=== PATIENT | male | born 1985 | race Caucasian/White ===

== ENCOUNTER 2021-11-13 14:26 | Outpatient (RCR) | payer OTHER, SELFPAY ==
--- OUTSIDE RECORDS SUMMARY | 2021-11-01 14:46 | XMS_ITS | Continuity of Care Document ---
:1985 Author Care Team Providers Name Role Phone MD Kaley Melo Primary Care Physician MD Lidya Attending Physician Unavailable PRAVIN Shaver Primary Care Physician Chief Complaint and Reason for Visit Chief Complaint SAME DAY SURGERY Allergies, Adverse Reactions, Alerts Allergen Type Severity Reaction Last Updated Verified Status No Known Drug Allergy Unknown May Yes Active Allergy 2021 Social History Smoking Status Status Start Date End Date Date of Observat ion Never smoked tobacco July 31, 2021 6:07pm (finding) Observation Status Observation Response Date of Response History provided by Patient March 24, 2017 6 :03pm Where do you live? Own home/apt March 24, 2017 6 :03pm With whom do you live? Spouse March 24 6:03pm Minor children March 24, 2017 6 :03pm Additional Data Assigned Sex Male Problems Active Problems Medical Problem Onset Date Status History of ITP Active Incisional hernia Active Morbid obesity Active Depression Active GERD (gastroesophageal reflux Active disease) Seasonal allergies Active Hx of deep venous thrombosis Active Hx pulmonary embolism Active s/p incisional hernia repair Active Hearing loss in right ear Active Otitis Active Hx of splenectomy Active Medications Medication Status Dose Units Route Directions Qty Days Start End Ins tructions Date Date Acetaminophe Active 500-1 MG PO Every 6 100 NO M ORE THAN n (Tylenol 000 Hours as 4000 M G/DAY Extra needed Strength) 500 Mg TAB Amoxicillin Active 875 MG PO Twice Daily 05 August For 10 Days 2021 5:15pm Dexamethason Active 40 MG PO Daily September 40mg d aily x e , 4 days. 2021 6:58pm Fexofenadine Active 1 TAB PO Daily 15 November -Pseudoephed 2017 (Mignon-D 3:18pm 24 Hour Allergy) 24 Hour TAB Ibuprofen Active 800 MG PO Tid Prn Indomethacin Active 50 MG PO Three Times 17 June A Day as , 2021 9:56am Omeprazole Active 40 MG PO Daily August 15, 2021 10:40am Prednisone Active 10 MG PO Daily 14 October 03, 2021 9:49am Prednisone Active 20-60 MG PO Daily Ud September 60 MG PO DAILY FOR 7 DAYS, THEN , 50 MG PO DAILY for 7 days, then 2021 40 MG PO DAILY FOR 7 DAYS, THEN 9:49am 30 mg po myles y for 7 days, then 20 MG PO DAILY FOR 7 DAYS, THEN 10 MG PO Daily for 7 days, Then 5 mg po daily for 7 days. Prednisone Active 50 MG PO Daily 7 October 03, 2021 9:49am Sildenafil Active 50-10 MG PO As Needed 22 July TAKE 1 TAB 1 Citrate 0 , HR PRIOR TO (Viagra) 2020 INTERCO URSE Mg TAB 12:31pm Albuterol Disconti 2 PUFF INH Every 4 May Sulfate nued Hours as , , (Proair Hfa) needed 2019 2020 90 Mcg/Puff 3:45pm 8:58am INH Amoxicillin Disconti 1000 MG PO Twice A Day May uar nued r , y 2018 10:45am 3:07pm Amoxicillin Disconti 1 TABLET PO Twice Daily July & Pot nued For 10 Days , , Clavulanate 2017 2017 (Augmentin) 3:12pm 3:02pm 875 Mg/125 Mg TAB Amoxicillin/ Disconti 1 TAB PO Twice Daily Ja nuar Clavulanate nued For 10 Days er y Potassium , , (Amoxicillin 2020 2021 & Pot 3:58pm 9:06am Clavulanate) 875 Mg/125 Mg TAB Cephalexin Disconti 1000 MG PO Three Times May Marito h 2 capsules nued A Day , , TID 2021 2021 9:56am 4:41pm Cephalexin Disconti 500 MG PO Four Times 28 Mayua r nued Daily r y 2016, 2:51pm 2017 11:05a m Cephalexin Disconti 500 MG PO Four Times 40 Novembe Novem b nued Daily r 9th, er 2016 15, 10:52am 2017 2:51pm Cetirizine Disconti 10 MG PO Daily December Hcl nued 2017 8:01am Clobetasol Disconti 1 FRANSISCA TOP Twice A Day 31 December Janua r APPLY SPARINGLY TO AFFECTED AREA for no more than 2 wks at Propionate nued 28th, y 9th, a time. (Clobetasol 2017 2019 Propionate 8:21am 3:07pm Ointment) 0.05 % OINT Docusate Disconti 100 MG PO Twice A Day 14 Novembe Januar take twice Sodium nued r 9, y daily for (Colace) 100 2016, constip ation Mg CAP 10:52am 2017 11:05a m Enoxaparin Disconti 30 MG SUBQ Twice A Day 30 Novembe Satish ar Sodium nued r 27, y (Lovenox) 2016, Mg/0.3 Ml 3:06pm 2017 SOLN 11:05a m Enoxaparin Disconti 30 MG SUBQ Twice A Day 60 Novembe Nove mb Sodium nued r 9, er (Lovenox) 30 2016, Mg/0.3 Ml 10:52am 2016 SOLN 3:06pm Heparin Disconti 5000 UNIT SUBQ Three Times 42 Novembe Januar (Porcine) In nued A Day r 27, y Sodium Ch 2016, (Heparin 3:39pm 2017 Sodium/Nacl 11:05a 0.9%) 1,000 m Unit INJ Influenza Disconti 0.5 ML IM Once 1 Decembe Decemb Virus Vac nued r 24, er Recomb Hem 2018, (Flublok 10:25am 2018 Quadrivalent 11:39a 2018 0.5 Ml) m 1 Inj INJ Influenza Disconti 0.5 ML IM Once 1 Septem Virus nued er francisco Vaccine , , Split 2016 2016 (Fluzone 11:26am 11:36a Quadrivalent m (3 Yrs And Older)2016- 7) 1 Inj INJ Levofloxacin Disconti 750 MG PO Daily 7 Mayua nued 16, ry 2019 14, 4:11pm 2019 9:21am Levofloxacin Disconti 750 MG PO Daily 7 Mayuar nued 2019 16, 3:45pm 2019 3:36pm Omeprazole Disconti 40 MG PO Daily August 8:11am 10:40a m Omeprazole Disconti 40 MG PO Daily October 4:13pm 8:11am Omeprazole Disconti 40 MG PO Daily July 2:40pm 4:13pm Omeprazole Disconti 40 MG PO Daily July 3:47pm 2:40pm Omeprazole Disconti 40 MG PO Daily 30 July 1:45pm 3:47pm Omeprazole Disconti 40 MG PO Daily 90 ua nued r , 2017, 12:51pm 2019 1:45pm Omeprazole Disconti 40 MG PO Daily 90 Decemb nued er er , 2016 12:12pm 12:51p m Omeprazole Disconti 40 MG PO Daily 30 Sept nued francisco 2016 12:12p m Oxycodone Disconti 5-10 MG PO Every 4 60 Novembe Januar Hcl nued Hours as r 15th, y needed 2016, 2:44pm 2017 11:05a m Oxycodone Disconti 5-10 MG PO Every 4 30 Novembe Januar Hcl nued Hours as r 27th, y needed 2016, 3:21pm 2017 11:05a m Oxycodone Disconti 5-10 MG PO Every 4 30 Novembe Novemb Hcl nued Hours as r , er needed 2016, 10:08am 2016 3:21pm Prednisone Disconti 20 MG PO Twice A Day 10 ar nued er y , 2020 3:58pm 9:06am Prednisone Disconti 20 MG PO Twice A Day October 20 mg bid for 7 days, then daily for 6 days. Take with nued , . 2019 2019 4:13pm 3:03pm Prednisone Disconti 20 MG PO Daily 7 Decembe Januar nued r 24th, y 9th, 2018 2019 10:45am 3:07pm Sennosides Disconti 1 TAB PO Daily 100 (Senna) 8.6 nued r 9th, y Mg TAB 2016, 10:52am 2017 11:05a m Sildenafil Disconti 50-10 MG PO As Needed July TAKE 1 TAB 1 Citrate nued 0 er 11th, HR PRIOR TO (Viagra) 2020 INTERCO URSE Mg TAB 2019 12:31p 8:51am m Sildenafil Disconti 50-10 MG PO As Needed August T HIRAM 1 TAB 1 Citrate nued 0 13th, francisco HR PRIOR TO (Viagra) 2019, INTERCO URSE Mg TAB 11:47am 2019 8:51am Sildenafil Disconti 50-10 MG PO As Needed August TAKE 1 TAB 1 Citrate nued 0 y 14, 13th, HR PRIOR T O (Viagra) 2019 INTERCO URSE Mg TAB 9:50am 11:47a m Triamcinolon Disconti 2-3 DROP AFFEAR Twice A Day July e e Acetonide nued , , (Lotion) 2017 2017 9:16am 3:02pm Triamcinolon Disconti 1 FRANSISCA TOP Twice A Day 17 March No vemb APPLY TO e Acetonide nued , er AFFECTED AREA (Ointment) 2016 07, for up to 2 1:26pm 2016 wks. 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 Reason Number Number Informatio n Statement (VIS) Deta il COVID-19 Pfizer January 132020 COVID-19 Pfizer March 202020 DTaP September 231985 DTaP November 251985 DTaP February 181985 DTaP June 221987 DTaP December 041990 Hepatitis B Adult June 192005 Hepatitis B Peds December 061997 Hepatitis B Peds December 191998 Hepatitis B Peds August 20, 2004 HIB September 251987 HIB February 172013 Human August 26, Other Papillomavirus 2013 Reason Influenza January 19 Sanofi [id number] 2016 Influenza April 21 SANOFI [id number] 2018 Influenza February 16 [id number] 2013 Influenza February 17 [id number] 2014 Influenza February 20 [id number] 2020 IPV Peds September 231985 IPV Peds November 251985 IPV Peds June 211987 IPV Peds December 041990 Meningococcal February 16 (11Y-15Y) 2013 MMR Peds April 181986 MMR Peds December 061997 Prevnar Adult February 162013 Tetanus/Diptheria October 052010 Tetanus/Diptheria December 071995 Tdap June 19 (adolescent/adult 2005 ) Tdap January 18 (adolescent/adult 2018 ) Relevant Diagnostic Tests and/or Laboratory Data Laboratory Results Test Date/Time Result Interpretation Reference Result Perfo rming Site Range Comment White Blood October 09, 22.97 5.00-10.00 [facility] Lab Count [address] [facility] 8:15am [facility] [address] Red Blood October 09, 5.31 4.32-5.72 [facility] Lab Count [address] [facility] 8:15am [place] [address] Hemoglobin October 09, 14.8 13.5-17.5 [facility] Lab [address] [facility] 8:15am [place] [address] Hematocrit October 09, 45.6 38.8-50.0 [facility] Lab [address] [facility] 8:15am [place] [address] Mean October 09, 86 81-95 [facility] Lab Corpuscular 2021 1999 [facility] Volume 8:15am [place] [address] Mean October 09, 28 27-34 [facility] Lab Corpuscular 2021 [address] [facility] Hemoglobin 8:15am [place] [address] Mean October 09, 33 32-36 [facility] Lab Corpuscular 2021 [address] [facility] Hemoglobin 8:15am [place] [address] Concent Platelet October 30, 344 150-450 [facility] Lab Count [address] [facility] 8:08am [place] [address] White Blood October 02, 21.9 4.5-11.0 Manual Diff [facility] Count 2021 PMN 43, [address] [facility] 10:09am Lymph 42, [place] [address] [place] 15 Red Blood October 02, 5.69 4.30-5.90 [place] [facility] Count [address] [facility] 10:09am [place] [address] Hemoglobin October 02, 15.7 13.5-17.5 [facility] [address] [facility] 10:09am [place] [address] Hematocrit October 02, 47.9 37-53 [facility] [address] [facility] 10:09am [place] [address] Mean October 02, 84 80-100 [facility] Corpuscular 2021 [address] [facility] Volume 10:09am [place] [address] Mean October 02, 28 26-34 [facility] Corpuscular 2021 [address] [facility] Hemoglobin 10:09am [place] [address] Mean October 02, 33 32-36 [facility] Corpuscular 2021 [address] [facility] Hemoglobin 10:09am [place] [address] Concent Platelet October 02, 573 140-440 estimate [facility] Count 2021 agrees, [facility] 10:09am [place] [address] giant platelets seen Neutrophils October 02, 43.1 42-72 [facility] (%) (Auto) 2021 1999 [facility] 10:09am [place] [address] Lymphocytes October 02, 42.6 20-44 [facility] (%) (Auto) 2021 [address] [facility] 10:09am [place] [address] Monocytes October 02, 12.4 0-11 [facility] (%) (Auto) 2021 [address] [facility] 10:09am [place] [address] Eosinophils October 02, 1.4 0-7 [facility] (%) (Auto) 2021 [address] [facility] 10:09am [place] [address] Basophils October 02, 0.0 0.0-3.0 [facility] (%) (Auto) 2021 [address] [facility] 10:09am [place] [address] Neutrophils October 02, 9.4 1.7-7.0 [facility] ([facility] [address] [facility] 10:09am [place] [address] Lymphocytes October 02, 9.3 0.9-2.9 [facility] # (Auto) [address] [facility] 10:09am [place] [address] Monocytes # October 02, 2.7 0.0-0.9 [facility] (Auto[facility] [address] [facility] 10:09am [place] [address] Eosinophils October 02, 0.3 0.0-0.5 [facility] # (Auto) [address] [facility] 10:09am [facility] [address] Basophils # October 02, 0.0 0.0-0.3 [facility] (Auto) [address] [facility] 10:09am [facility] [address] Immature October 02, 0.1 [facility] Granulocyte 2021 [address] [facility] # (Auto) 10:09am [facility] [address] Immature October 02, 0.5 [facility] Granulocyte 2021 [address] [facility] % (Auto) 10:09am [facility] [address] Advance Directives Advance Directive Response Recorded Date/Time Has patient completed a No June 05 10:53am Health Care Directive? Insurance Providers Guarantor Francisco Javier Mccall Address [address] [place] [id number] Contact Info. Home Phone: Payer Policy Id Coverage Id Subscriber's Subscriber Id Effective E xpiration Name Date Date Umr [id number] Francisco Javier Mccall 2018 Choice Select Encounters Encounter Location(s) Arrival/Admit Date Discharge/Depart Date Provider(s) Registered [place] October 30, 2021 Nithya Bose [facility] 6:55am Registered [place] October 02, 2021 Ray Melo am [facility] 10:08am Kaley ARROYO Registered [facility] October 02, 2021 [facility] Office Visit [place] October 02, 2021 Ray Melo [facility] 10:00am Kaley ARROYO Functional Status Observation Response Date Recorded Functional Status Independent March 28, 2017 2:36pm Mental Status Observation Response Date Recorded Cognitive Status Alert March 28, 2017 2:36pm Oriented March 28, 2017 2:36pm Plan of Treatment Future Tests Future scheduled test information is unavailable Pending Tests Pending diagnostic test information is unavailable Future Visits Future appointment information is unavailable Referrals to Other Providers Reason for Referral Start Provider Provider Contact Provider Address Referral Date Information [facility], [facility] Future Procedures Future procedure information is unavailable Future Medications Future medication information is unavailable Patient Instructions Cephalexin (By mouth) Laxative, Stimulant (By mouth) Laxative, Stool Softeners (By mouth) Enoxaparin (By injection) Ventral Hernia Repair (DC)
--- OUTSIDE RECORDS SUMMARY | 2021-11-09 14:35 | XMS_ITS | Continuity of Care Document ---
:1985 Author Care Team Providers Name Role Phone MD Kaley Melo Primary Care Physician MD Lidya Attending Physician Unavailable PRAVIN Shaver Primary Care Physician Allergies, Adverse Reactions, Alerts Allergen Type Severity [...] Daily September 40mg d aily x e days. 2021 6:58pm Fexofenadine Active 1 TAB PO Daily 15 November -Pseudoephed 2017 (Mignon-D 3:18pm 24 Hour Allergy) 24 Hour TAB Ibuprofen Active 800 MG PO Tid Prn Indomethacin Active 50 MG PO Three Times 17 June A Day as , needed 2021 9:56am Omeprazole Active 40 MG PO [...] July TAKE 1 TAB 1 Citrate 0 11, HR PRIOR TO (Viagra) 2020 INTERCO URSE Mg TAB 12:31pm Albuterol Disconti 2 PUFF INH Every 4 May Sulfate nued Hours as , (Proair Hfa) needed 2019 2020 90 Mcg/Puff 3:45pm 8:58am INH Amoxicillin Disconti 1000 MG PO Twice A Day 40 Decemb Joselito uar nued r , y 2018 10:45am [...] Disconti 500 MG PO Four Times 28 Novembe Janua r nued Daily r , y 2016, 2:51pm 2017 11:05a m Cephalexin Disconti 500 MG PO Four Times 40 Novembe Novem b nued Daily r 9, er 2016, 10:52am 2016 2:51pm Cetirizine Disconti 10 MG PO Daily December Hcl nued 2017 8:01am Clobetasol Disconti 1 FRANSISCA TOP Twice A Day 31 December Janua r APPLY SPARINGLY TO AFFECTED AREA for no more than 2 wks at Propionate nued 28, y 9th, a time. (Clobetasol 2017 2019 [...] MG SUBQ Twice A Day 60 Novembe Wes mb Sodium nued r 9, er (Lovenox) 2016, Mg/0.3 Ml 10:52am 2016 SOLN 3:06pm Heparin Disconti 5000 UNIT SUBQ Three Times 42 Novembe Mayuar (Porcine) In nued A Day r 27, y Sodium Ch 2016, (Heparin 3:39pm 2017 Sodium/Nacl 11:05a 0.9%) 1,000 m Unit INJ Influenza Disconti 0.5 ML IM Once 1 Decembe Decemb Virus Vac nued r , er Recomb Hem 2018, (Flublok 10:25am 2018 Quadrivalent 11:39a 2018 0.5 Ml) m 1 Inj INJ Influenza Disconti 0.5 ML IM Once 1 Septem Virus nued er francisco Vaccine , 13, Split 2016 2016 (Fluzone 11:26am 11:36a Quadrivalent m (3 Yrs And Older)2015- 7) 1 Inj INJ Levofloxacin Disconti 750 MG PO Daily May Februa nued 16, ry 2019 14, 4:11pm 2019 9:21am Levofloxacin Disconti 750 MG PO Daily 7 7 Halima Januar nued 9, 2019, 3:45pm 2019 3:36pm Omeprazole Disconti 40 MG PO Daily Augusted , 2020 8:11am 10:40a m Omeprazole Disconti 40 MG PO Daily October, 2019 4:13pm 8:11am Omeprazole Disconti 40 MG PO Daily July 2:40pm 4:13pm Omeprazole Disconti 40 MG PO Daily July 3:47pm 2:40pm Omeprazole Disconti 40 MG PO Daily 30 July y 2019 1:45pm 3:47pm Omeprazole Disconti 40 MG PO Daily 90 Decembua nued r , 2017 12th, 12:51pm 2019 1:45pm Omeprazole Disconti 40 MG PO Daily 90 Decemb nued er er 2016 12:12pm 12:51p m Omeprazole Disconti 40 MG PO Daily 30 Septem nued francisco 2016 12:12p m Oxycodone Disconti [...] Novembe Novemb Hcl nued Hours as r 21st, er needed 2016, 10:08am 2016 3:21pm Prednisone Disconti 20 MG PO Twice A Day 10 ar nued er y , 2020 3:58pm 9:06am Prednisone Disconti 20 MG PO Twice A Day October 20 mg bid for 7 days, then daily for 6 days. Take with nued , , . 2019 2019 4:13pm 3:03pm Prednisone Disconti 20 MG PO Daily 7 Decemb Januar nued r 24th, y [address] 10:45am 3:07pm Sennosides Disconti 1 TAB PO Daily 100 14 Novem Januar (Senna) 8.6 nued r 9th, y Mg TAB 2016, 10:52am 2017 11:05a m Sildenafil Disconti 50-10 MG PO As Needed 6 July TAKE 1 TAB 1 Citrate nued 0 er 11th, HR PRIOR TO (Viagra) 2020 INTERCO URSE Mg TAB 2019 12:31p 8:51am m Sildenafil Disconti 50-10 MG PO As Needed 6 Augustem T HIRAM 1 TAB 1 Citrate nued 0 13th, francisco HR PRIOR TO (Viagra) 2019, INTERCO URSE Mg TAB 11:47am 2019 8:51am Sildenafil Disconti 50-10 MG PO As Needed August TAKE 1 TAB 1 Citrate nued 0 y 14th, 13th, HR PRIOR T O (Viagra) 2019 [...] Immunizations Immunization Event Date Not Given 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 cine Reason Number Number Informatio n Statement (VIS) Deta abigail COVID-19 Pfizer January 132020 COVID-19 Pfizer March 202020 DTaP September 231985 DTaP November 251985 DTaP February 181985 DTaP June 221987 DTaP December 04, 1990 Hepatitis B Adult June 192005 Hepatitis B Peds December 061997 Hepatitis B Peds December 19, 1998 Hepatitis B Peds August 20, 2004 HIB September 251987 HIB February 172013 Human August 26, Other Papillomavirus 2013 Reason Influenza January 19 Sanofi [id number] 2016 Influenza April 21 SANOFI [id number] 2018 Influenza February 16 [id number] 2013 Influenza February 17 [id number] 2014 Influenza February 20 [id number] 2020 IPV Peds September 231985 IPV Peds November 251985 IPV Peds June 211987 IPV Peds December 04, 1990 Meningococcal February 16 (11Y-15Y) 2013 MMR Peds April 181986 MMR Peds December 061997 Prevnar Adult February 162013 Tetanus/Diptheria October 052010 Tetanus/Diptheria December 071995 Tdap June 19 (adolescent/adult 2005 ) Tdap January 18 (adolescent/adult 2018 ) Relevant Diagnostic Tests and/or Laboratory Data Laboratory Results Test Date/Time Result Interpretation Reference Result Perfo rming Range Comment Site White Blood October 09, .97 5.00-10.00 [facility] Lab Count 2021 8:15am [address] [place] [address] Red Blood October 09, 5.31 4.32-5.72 [facility] Lab Count 2021 8:15am [address] [place] [address] Hemoglobin October 09, 14.8 13.5-17.5 [facility] Lab 2021 8:15am [address] [place] [address] Hematocrit October 09, 45.6 38.8-50.0 [facility] Lab 2021 8:15am [address] [place] [address] Mean October 09, 86 81-95 [facility] Lab Corpuscular 2021 8:15am [address] [facility] [place] [address] Mean October 09, 28 27-34 [facility] Lab Corpuscular 2021 8:15am [address] [facility] [place] [facility] [place] [address] Mean October 09, 33 32-36 [facility] Lab Corpuscular 2021 8:15am [address] [facility] [place] [facility] [place] [address] Concent Platelet Count October 30, 344 150-450 [facility] Lab 2021 8:08am [address] [facility] [address] Advance Directives Advance Directive Response Recorded Date/Time Has patient completed a No June 05 10:53am Health Care Directive? Insurance Providers Guarantor Francisco Javier Mccall Address [address] [facility] [address] Contact Info. Home Phone: Payer Policy Id Coverage Id Subscriber's Subscriber Id Effective E xpiration Name Date Date Umr [id number] Francisco Javier Mccall May 19 Patient 2019 Choice Select Encounters Encounter Location(s) Arrival/Admit Date Discharge/Depart Date Provider(s) Registered [place] November 06, 2021 Nithya Bose [facility] 7:03am Functional Status Observation Response Date Recorded Functional [...]
[2021-11-13 08:25] LABS: Slide Review Reflex No
[2021-11-13 08:37] LABS: Hematocrit 49.8 % (37.0-53.0); Mean Corpuscular HGB Conc 32 gm/dL (32-36); Mean Corpuscular Hemoglobin 28 pg (26-34); Mean Corpuscular Volume 88 fL (80-100); Platelet Count* 450 K/uL (140-440); Red Blood Count 5.67 m/uL (4.30-5.90); White Blood Count* 15.35 K/uL (4.50-11.00)
--- NOTE | 2021-11-13 10:26 | ONC.NURNOTE ---
Patient called and given lab results
== END 2021-11-15 23:59 | disposition home or self-care (01) ==
LOC: CCIC 14:26
PROVIDERS: PCP Family Medicine; Visit Provider Internal Medicine Hematology & Oncology
DX: D69.3 Immune thrombocytopenic purpura (principal)
CPT/HCPCS: 36415; 85027

== ENCOUNTER 2021-12-11 08:00 | Outpatient (RCR) | payer OTHER, SELFPAY ==
[2021-11-20 08:39] LABS: Basophils Percent Auto 0.4 % (0.0-3.0); Eosinophils Percent Auto 4.9 % (0.0-7.0); Hematocrit 47.7 % (37.0-53.0); Hemoglobin* 15.5 gm/dL (13.5-17.5); Immature Granulocytes Abs Auto 0.02 K/uL (0.00-0.30); Lymphocytes Percent Auto 18.8 % (20-44); Mean Corpuscular HGB Conc 33 gm/dL (32-36); Mean Corpuscular Hemoglobin 28 pg (26-34); Mean Corpuscular Volume 86 fL (80-100); Monocytes Percent Auto 8.5 % (0.0-11.0); Neutrophils Percent Auto 67.3 % (42.0-72.0); Platelet Count* 575 K/uL (140-440); RDW Coefficient of Variation % 15.1 % (11.5-15.5); Red Blood Count 5.52 m/uL (4.30-5.90); White Blood Count* 13.76 K/uL (4.50-11.00)
[2021-11-20 08:59] LABS: Albumin* 3.9 g/dL (3.3-5.0); Chloride* 107 mmol/L (96-114); Sodium* 138 mmol/L (135-149)
[2021-11-20 09:00] LABS: Potassium* 3.9 mmol/L (3.6-5.1)
[2021-11-20 09:02] LABS: Alanine Aminotransferase* 29 U/L (4-50); Alkaline Phosphatase* 95 U/L (40-150); Aspartate Amino Transferase* 27 U/L (12-35); Bilirubin Total* 0.3 mg/dL (0.1-1.5); Blood Urea Nitrogen* 13 mg/dL (5-24); Carbon Dioxide* 29 mmol/L (20-32); Estimated Glomerular Filt Rate 100.03; Glucose* 113 mg/dL (60-115); Total Protein* 6.3 g/dL (6.0-8.3)
[2021-11-20 09:03] LABS: Calcium* 8.8 mg/dL (8.4-10.6)
[2021-11-20 09:23] LABS: Slide Review Reflex No
[2021-12-04 08:26] LABS: Basophils Percent Auto 0.3 % (0.0-3.0); Eosinophils Percent Auto 6.4 % (0.0-7.0); Hematocrit 47.1 % (37.0-53.0); Hemoglobin* 15.6 gm/dL (13.5-17.5); Immature Granulocytes Abs Auto 0.03 K/uL (0.00-0.30); Lymphocytes Percent Auto 20.3 % (20-44); Mean Corpuscular HGB Conc 33 gm/dL (32-36); Mean Corpuscular Hemoglobin 28 pg (26-34); Mean Corpuscular Volume 85 fL (80-100); Neutrophils Percent Auto 65.7 % (42.0-72.0); Platelet Count* 671 K/uL (140-440); RDW Coefficient of Variation % 14.2 % (11.5-15.5); Red Blood Count 5.57 m/uL (4.30-5.90); White Blood Count* 11.81 K/uL (4.50-11.00)
[2021-12-04 08:39] LABS: Chloride* 107 mmol/L (96-114); Potassium* 4.3 mmol/L (3.6-5.1); Sodium* 139 mmol/L (135-149)
[2021-12-04 08:43] LABS: Carbon Dioxide* 26 mmol/L (20-32)
[2021-12-04 08:45] LABS: Slide Review Reflex No
[2021-12-11 08:31] LABS: Basophils Absolute Auto 0.04 K/uL (0.00-0.30); Basophils Percent Auto 0.4 % (0.0-3.0); Eosinophils Percent Auto 7.9 % (0.0-7.0); Hematocrit 46.9 % (37.0-53.0); Hemoglobin* 15.5 gm/dL (13.5-17.5); Immature Granulocytes Abs Auto 0.02 K/uL (0.00-0.30); Lymphocytes Absolute Auto 2.48 K/uL (0.90-2.90); Lymphocytes Percent Auto 23.1 % (20-44); Mean Corpuscular HGB Conc 33 gm/dL (32-36); Mean Corpuscular Hemoglobin 28 pg (26-34); Mean Corpuscular Volume 85 fL (80-100); Monocytes Percent Auto 7.6 % (0.0-11.0); Neutrophils Absolute Auto 6.51 K/uL (1.7-7.0); Neutrophils Percent Auto 60.8 % (42.0-72.0); Platelet Count* 647 K/uL (140-440); RDW Coefficient of Variation % 14.5 % (11.5-15.5); Red Blood Count 5.54 m/uL (4.30-5.90); White Blood Count* 10.72 K/uL (4.50-11.00)
[2021-12-11 08:42] LABS: Slide Review Reflex No
== END 2021-12-16 23:59 | disposition home or self-care (01) ==
LOC: CCIC 08:00
PROVIDERS: PCP Family Medicine; Visit Provider Internal Medicine Hematology & Oncology
DX: D69.3 Immune thrombocytopenic purpura (principal)
CPT/HCPCS: 36415; 80051; 80053; 85025; 99212; 99214

== ENCOUNTER 2022-01-10 07:11 | Outpatient (CLI) | payer OTHER, SELFPAY ==
[2022-01-10 10:09] LABS: Cholesterol* 200 mg/dL (90-199); HDL Cholesterol* 27 mg/dL (>=40); LDL Cholesterol Calculated 112 mg/dL (<100); Triglycerides* 305 mg/dL (40-149)
== END 2022-01-10 07:12 | disposition home or self-care (01) ==
LOC: NFLDREF 07:42
PROVIDERS: PCP Family Medicine; Visit Provider Family Medicine
DX: Z13.6 Encounter for screening for cardiovascular disorders (principal)
CPT/HCPCS: 80061

== ENCOUNTER 2022-01-17 08:23 | Outpatient (CLI) | payer OTHER, SELFPAY | END 2022-01-17 08:24 | disposition home or self-care (01) | PROVIDERS: PCP Family Medicine; Visit Provider Family Medicine | DX: R35.0 Frequency of micturition (principal) | CPT/HCPCS: 87086 ==

== ENCOUNTER 2022-03-13 13:11 | Outpatient (CLI) | payer OTHER, SELFPAY ==
[2022-03-13 19:09] LABS: SARS PCR* POSITIVE SARS-CoV-2 (Negative)
== END 2022-03-13 13:12 | disposition home or self-care (01) ==
LOC: LONREF 13:12
PROVIDERS: PCP Family Medicine; Visit Provider Family Medicine
DX: U07.1 COVID-19 (principal); R05.9 Cough, unspecified
CPT/HCPCS: 87635

== ENCOUNTER 2022-05-08 08:00 | Outpatient (RCR) | payer OTHER, SELFPAY ==
--- NOTE | 2022-01-01 15:12 | ONC.NURNOTE ---
no show for blood draw. message left.
--- NOTE | 2022-01-15 08:39 | W.ONCCN ---
Oncology-CN: HPI Date of Consult Primary Care Provider: Cabrera Melo MD Consult Narrative Narrative: Angus Mccall is a 36 year old male [facility] Medical History (Updated 12/03/21 @ 22:32 by Cassandra Lin APRN) Depression Gastroesophageal reflux disease Hearing loss of right ear History of deep venous thrombosis History of idiopathic thrombocytopenic purpura History of pulmonary embolism Immune thrombocytopenic purpura Incisional hernia Morbid obesity Otitis Seasonal allergic rhinitis Surgical History (Updated 12/03/21 @ 22:32 by Cassandra Lin APRN) History of hernia repair History of incisional hernia repair History of splenectomy Meds Home Medications and Allergies Home Medications Medication Instructions Recorded Confirmed Type acetaminophen 500 mg tablet 500 - 1,000 mg PO Q6H PRN 11/07/21 11/21/21 History (Tylenol Extra Strength) fexofenadine-pseudoephedrine ER 1 tab PO Q24H 11/07/21 11/21/21 History 180 mg-240 mg tablet,ext.release 24 hr (Mignon-D 24 Hour) omeprazole 40 mg capsule,delayed 40 mg PO QDAY 11/07/21 11/21/21 History release sildenafil 50 mg tablet (Viagra) 50 - 100 mg PO DAILY PRN 11/07/21 11/21/21 History Allergies Allergy/AdvReac Type Severity Reaction Status Date / Time No Known Drug Allergies Allergy Verified 11/12/21 09:30
--- NOTE | 2022-01-15 09:13 | ONC.NURNOTE ---
Message left for patient that he missed his appointment and should come in today or tomorrow for his monthly CBC. Last done 12/11
[2022-02-12 08:18] LABS: Basophils Percent Auto 0.4 % (0.0-3.0); Eosinophils Percent Auto 6.1 % (0.0-7.0); Hematocrit 47.5 % (37.0-53.0); Hemoglobin* 15.5 gm/dL (13.5-17.5); Immature Granulocytes Abs Auto 0.05 K/uL (0.00-0.30); Lymphocytes Percent Auto 22.7 % (20-44); Mean Corpuscular HGB Conc 33 gm/dL (32-36); Mean Corpuscular Hemoglobin 28 pg (26-34); Mean Corpuscular Volume 85 fL (80-100); Monocytes Percent Auto 10.4 % (0.0-11.0); Platelet Count* 666 K/uL (140-440); RDW Coefficient of Variation % 13.9 % (11.5-15.5); Red Blood Count 5.56 m/uL (4.30-5.90); White Blood Count* 12.47 K/uL (4.50-11.00)
[2022-02-12 08:23] LABS: Slide Review Reflex No
[2022-02-12 08:31] LABS: Albumin* 4.2 g/dL (3.3-5.0); Chloride* 103 mmol/L (96-114)
[2022-02-12 08:32] LABS: Sodium* 137 mmol/L (135-149)
[2022-02-12 08:34] LABS: Bilirubin Total* 0.5 mg/dL (0.1-1.5); Carbon Dioxide* 26 mmol/L (20-32); Estimated Glomerular Filt Rate 100 ml/min
[2022-02-12 08:35] LABS: Alanine Aminotransferase* 29 U/L (4-50); Alkaline Phosphatase* 86 U/L (40-150); Aspartate Amino Transferase* 25 U/L (12-35); Blood Urea Nitrogen* 13 mg/dL (5-24); Calcium* 9.2 mg/dL (8.4-10.6); Glucose* 109 mg/dL (60-115); Potassium* 4.1 mmol/L (3.6-5.1); Total Protein* 6.7 g/dL (6.0-8.3)
--- NOTE | 2022-04-10 15:43 | PC.NURSE ---
Pt was scheduled for labs today and did not come. LM on his primary line inviting him to call back to re-schedule.
== END 2022-08-11 23:59 | disposition home or self-care (01) ==
LOC: CCIC 08:00
PROVIDERS: PCP Family Medicine; Referring Provider Family Medicine; Visit Provider Internal Medicine Hematology & Oncology
DX: D69.3 Immune thrombocytopenic purpura (principal)
CPT/HCPCS: 36415; 80053; 85025; 99212; 99213; 99214

== ENCOUNTER 2023-09-17 09:20 | Outpatient (CLI) | payer OTHER, SELFPAY | END 2023-09-17 09:21 | disposition home or self-care (01) | LOC: NFLDREF 09-19 06:56 | PROVIDERS: PCP Family Medicine; Referring Provider Family Medicine; Visit Provider Family Medicine | DX: E78.5 Hyperlipidemia, unspecified (principal); Z13.228 Encounter for screening for other metabolic disorders | CPT/HCPCS: 80053; 80061 ==

== ENCOUNTER 2024-01-20 10:30 | Outpatient (RCR) | payer OTHER, SELFPAY ==
[2024-01-14 08:34] LABS: Basophils Percent Auto 0.4 % (0.0-3.0); Eosinophils Percent Auto 7.5 % (0.0-7.0); Hematocrit 48.5 % (37.0-53.0); Hemoglobin* 15.6 gm/dL (13.5-17.5); Immature Granulocytes Pct Auto 0.2 %; Lymphocytes Percent Auto 21.7 % (20-44); Mean Corpuscular HGB Conc 32 gm/dL (32-36); Mean Corpuscular Hemoglobin 28 pg (26-34); Mean Corpuscular Volume 86 fL (80-100); Monocytes Percent Auto 11.2 % (0.0-11.0); Platelet Count* 572 K/uL (140-440); RDW Coefficient of Variation % 14.5 % (11.5-15.5); Red Blood Count 5.66 m/uL (4.30-5.90); White Blood Count* 11.23 K/uL (4.50-11.00)
[2024-01-14 08:40] LABS: Slide Review Reflex No
[2024-01-14 08:50] LABS: Chloride* 106 mmol/L (96-114)
[2024-01-14 08:51] LABS: Albumin* 4.1 g/dL (3.3-5.0); Potassium* 4.3 mmol/L (3.6-5.1); Sodium* 138 mmol/L (135-149)
[2024-01-14 08:54] LABS: Alanine Aminotransferase* 27 U/L (4-50); Alkaline Phosphatase* 76 U/L (40-150); Anion Gap 4 mEq/L (7-15); Aspartate Amino Transferase* 31 U/L (12-35); Bilirubin Total* 0.2 mg/dL (0.1-1.5); Blood Urea Nitrogen* 12 mg/dL (5-24); Calcium* 9.1 mg/dL (8.4-10.6); Carbon Dioxide* 28 mmol/L (20-32); Creatinine* 0.9 mg/dL (0.5-1.5); Estimated Glomerular Filt Rate 112 ml/min; Glucose* 112 mg/dL (60-115); Total Protein* 6.6 g/dL (6.0-8.3)
== END 2024-07-12 23:59 | disposition home or self-care (01) ==
LOC: CCIC 10:30
PROVIDERS: Clinical Nurse Specialist; PCP Family Medicine; Referring Provider Family Medicine; Visit Provider Internal Medicine Hematology & Oncology
DX: D69.3 Immune thrombocytopenic purpura (principal); E66.01 Morbid (severe) obesity due to excess calories
CPT/HCPCS: 36415; 80053; 85025; 99213; G0463

== ENCOUNTER 2024-04-21 11:19 | Outpatient (CLI) | payer OTHER, SELFPAY | END 2024-04-21 11:20 | disposition home or self-care (01) | PROVIDERS: PCP Family Medicine; Visit Provider Family Medicine | DX: I10 Essential (primary) hypertension (principal); R53.83 Other fatigue; R51.9 Headache, unspecified | CPT/HCPCS: 80053; 84443 ==

== ENCOUNTER 2024-10-28 06:15 | Emergency (ER) | payer OTHER, SELFPAY ==
[2024-10-28 06:21] VITALS: BP 131/87; PULSE 95; RESP 18; TEMP 36.7; O2SAT 99; BMI 45.2
--- NOTE | 2024-10-28 06:39 | CRLHL7_ITS ---
For Patients: As a result of the Century Cures Act, medical imaging exams and procedure reports are released immediately into your electronic medical record. You may view this report before your referring provider. If you have questions, please contact your health care provider. INDICATION: Left flank pain. TECHNIQUE: CT abdomen and pelvis acquired with 150 cc Isovue 317 IV contrast. COMPARISON: CT abdomen and pelvis October 2020. FINDINGS: Lower chest: No concerning findings. Liver: Normal in size and attenuation. No suspicious masses. Gallbladder and bile ducts: No stones or inflammation. No biliary dilatation. Pancreas: No mass or inflammation. Spleen: Absent Adrenal glands: No suspicious mass. Kidneys: Bilateral kidneys are normal in size and attenuation. Nonobstructing left upper ureteric calculus of 4 millimeter. Few small hypodense renal lesions, too small to characterized. One of the lesion at the upper pole of right kidney measures 1.7 x 1.6 cm likely related to renal cyst. GI tract: No findings of bowel obstruction. Normal appendix. Vasculature: Abdominal aorta is normal in caliber. Lymph nodes: Redemonstration of multiple enlarged intra-abdominal lymph nodes. Periportal lymph nodes have slightly decreased in size measuring 1.5 cm in the short axis, previously 1.9 cm. Bilateral periaortic lymph nodes are similar to previous exam. Bilateral iliac group of lymph nodes are similar in size and configuration with the largest on the left side measures about 38 x 21 cm and on the right side it measures about 29 x 16 cm. There is increased size of bilateral inguinal lymph nodes, largest on the right side measures 35 x 23 mm, previously 26 x 19 mm and largest on the left side measures 27 x 19 mm, previously 22 x 14 mm. Peritoneum/Abdominal Wall: No free air or significant free fluid. Pelvis: Multiple enlarged pelvic lymph nodes as described. Bones: Scattered degenerative changes of the spine. No concerning bony lesion. IMPRESSION: 1. Increased size of bilateral inguinal lymph nodes with stable size and configuration of retroperitoneal and bilateral iliac group of lymph node. Mild reduction in the size of a periportal lymph node. 2. Nonobstructing left upper ureteric calculus of 4 millimeter. No hydronephrosis. Please note that all CT scans at this facility use dose modulation, iterative reconstruction, and/or weight-based dosing when appropriate to reduce radiation dose to as low as reasonably achievable. Dictated by Marnie Garcia MD @ 10/28/2024 8:35:19 AM (Electronically Signed)
--- NOTE | 2024-10-28 06:45 | ED.GENADULT ---
HPI - General Adult General Chief complaint: Abdominal Pain Stated complaint: pain on left side back, Time Seen by Provider: 10/28/24 06:31 Source: patient Mode of arrival: ambulatory Limitations: no limitations History of Present Illness HPI narrative: 39-year-old male presents to the emergency department with flank pain area it started around 8:00 p.m. last night after a very vigorous sneeze. No hematuria. No dysuria. No fever. 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 He reports that his platelets tend to run high but when he has a flare-up of the ITP of course they run low. To complicate this. 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 Has some mild nausea but no vomiting. No history of prior kidney stones. No radiculopathy or other back pain. No difficulty breathing. Did not try taking any Tylenol or ibuprofen to help with symptoms. No prior history of similar symptoms. Past medical history most notable for ITP, red cell disorder as well, history of multiple abdominal surgeries secondary to splenectomy and complications. History of morbid obesity and also recent diagnosis of hypertension for which he started for optimal. Records reviewed. Remainder of medications reviewed. No known drug allergies. Nonsmoker. ROS is notable for the left flank pain area, otherwise denies times 12 systems. Related Data Home Medications ?Medication ?Instructions ?Recorded ?Confirmed acetaminophen 500 mg tablet 500 - 1,000 mg PO Q6H PRN 11/07/21 10/28/24 (Tylenol Extra Strength) ibuprofen 200 mg tablet 800 mg PO TID PRN 01/17/22 10/28/24 fexofenadine-pseudoephedrine ER 1 tab PO Q24H PRN 08/18/23 10/28/24 180 mg-240 mg tablet,ext.release 24 hr (Mignon-D 24 Hour) Previous Rx's ?Medication ?Instructions ?Recorded sildenafil 50 mg tablet (Viagra) 25 - 100 mg (0.5 - 2 x 50 mg) PO 09/24/23 DAILY PRN sexual activity #6 tabs omeprazole 40 mg capsule,delayed 40 mg PO DAILY #90 caps 05/26/24 release verapamil 240 mg 24 hr 240 mg PO QDAY #30 caps 01/08/25 capsule,extended release bupropion HCl 150 mg 24 hr tablet, 150 mg PO QAM #90 tabs 10/18/24 extended release ketorolac 10 mg tablet 10 mg PO Q6H PRN pain 5 days #20 10/28/24 tabs tamsulosin 0.4 mg capsule (Flomax) 0.4 mg PO DAILY #10 caps 10/28/24 Allergies Allergy/AdvReac Type Severity Reaction Status Date / Time No Known Drug Allergies Allergy Verified 10/28/24 08:06 [facility] Medical History Depression ?F32.A - Depression, unspecified (ICD-10) History of pulmonary embolism ?Z86.711 - Personal history of pulmonary embolism (ICD-10) Surgical History History of incisional hernia repair ?Z98.890 - Other specified postprocedural states (ICD-10) ?Z87.19 - Personal history of other diseases of the digestive system (ICD-10) History of hernia repair ?Z98.890 - Other specified postprocedural states (ICD-10) ?Z87.19 - Personal history of other diseases of the digestive system (ICD-10) History of splenectomy ?Z90.81 - Acquired absence of spleen (ICD-10) Social History Narrative: What is your current living situation?: I presently have a place to live Problems where you live: no known problems In the past 12 months, utilities in danger of being shut off: no In past 12 months, lack of transportation kept you from medical appts, meetings, work, or getting things needed for daily living: no In the past 12 mos, have been you worried that your food would run out before you had money to buy more?: never true In the past 12 mos, the food you bought just didn't last and you didn't have money to buy more?: never true Smoking Status: Never smoker Second hand tobacco smoke exposure: No How often do you have a drink containing alcohol: never AUDIT-C Alcohol total score: 0 Non-prescribed substance use: denies use How often does anyone, including family, friends and others, physically hurt you: never How often does anyone, including family, friends and others, insult or talk down to you: never How often does anyone, including family, friends and others, threaten you with harm: never How often does anyone, including family, friends and others, scream or curse at you: never Exam Const: Vital Signs, click to edit/add: Vital Signs - 24 hr 10/28/24 06:21 10/28/24 07:16 10/28/24 07:55 Temperature 98.0 F Pulse Rate [Right Pulse Oximeter] 95 86 Respiratory Rate 18 16 Blood Pressure [Ri ght Upper Arm] 131/87 125/77 Pulse Oximetry 99 99 98 Oxygen Delivery Me thod Room Air Room Air Documenting provider has reviewed patient's vital signs: yes Common normals: no apparent distress and alert General appearance: cooperative and well kempt Other: Does seem uncomfortable. Not in distress. Friendly and cooperative. HENMT: Common normals: normocephalic, moist oral mucous membranes and oropharynx normal Head and scalp: normocephalic Face and sinus: normal facial exam Mouth: oral and palatal mucosa normal Eye: Common normals: conjunctivae normal General eye: normal appearance of both eyes Conjunctiva: conjunctiva(e) normal Neck & C-Spine: Common normals: no lymphadenopathy General: normal visual inspection Chest: Common normals: inspection of chest normal and palpation of chest normal Resp: Common normals: normal respiratory effort, no use of accessory muscles and clear to auscultation bilaterally Effort & inspection: able to speak in complete sentences Auscultation: clear to auscultation bilaterally Cardio: Common normals: regular rate, regular rhythm, S1 normal heart sound, S2 normal heart sound and no murmurs Rate: regular rate Rhythm: regular rhythm Heart sounds: S1 normal and S2 normal GI: Common normals: Normal to inspection, nondistended, normoactive bowel sounds present, soft to palpation, no hepatosplenomegaly and no masses Palpation: soft and no hepatosplenomegaly Other: Surgical scarring consistent with history. Tenderness isn't really on the ribs or CVA area, I really is present on the lateral upper left abdomen, underneath the rib margin. : Common normals: no CVA tenderness Bladder/kidney exam: no CVA tenderness Back & Pelvis: Common normals: no CVA tenderness Extremity: Common normals: normal to inspection and normal capillary refill Neuro: Common normals: moves all extremities Sensorium/orientation: alert Speech: speech normal Motor exam: strength 5/5 throughout Psych: Appearance: well kempt Attitude: engaged Activity/motor behavior: appropriate eye contact Insight: insight good Judgement: judgment good Skin: Common normals: no rashes or lesions noted General skin exam: no rashes or lesions noted Course Course ED Course: 39-year-old male with left flank area pain notable history of prior splenectomy and complications, with pain that started after violent sneeze. Differential diagnosis includes kidney stone, rib fracture, pulmonary contusion. I am more concerned with some type of muscular tear or internal organ injury from his sneeze especially in the setting of abnormal anatomy, scar tissue potential, etc.. Pain is worsening and is suggestive of peritonitis on exam. Will give 0.5 of Dilaudid, obtain urine sample, typical intra-abdominal labs and CT of the abdomen and pelvis with contrast. Await findings. Reevaluation(s) Time of Reevaluation #1: 09:05 Reevaluation #1: Reviewed findings with patient. Source of pain does seem to be consistent with the 4 mm proximal ureteral stone. Has several incidental findings including renal abnormalities, multiple enlarged lymph nodes which were discussed with him has well. He will need to follow-up with his tower observer regarding these. A printed copy of the report is provided and written instructions on exactly which parts to discussed with the tower observer. All of these enlarged lymph nodes were previously seen as well and are likely consistent with his known hematological disorders. Discussed the kidney stone. Will give Toradol 10 mg p.o. x1 as well as a dose of Flomax here in the ED. Counseled to continue on Tylenol 1000 mg every 6 hours. Will give prescriptions for Flomax 1 pill once daily and Toradol 10 mg q.6 p.r.n. for pain. Counseled that it is also okay to use gentle sleep aids like melatonin and Benadryl as needed as sleeping aids. Alarm symptoms such as infection, severe intra-abdominal symptoms, etc. reviewed as indications to come to ED. He verbalizes understanding and agreement. Written instructions provided, all questions answered. Vital Signs Vital signs: Initial Vital Signs Temperature 98.0 F 10/28/24 06:21 Temperature Source Temporal Artery Scan 10/28/24 06:21 Pulse Rate 95 10/28/24 06:21 Respiratory Rate 18 10/28/24 06:21 Blood Pressure 131/87 10/28/24 06:21 Blood Pressure Mean 101 10/28/24 06:21 Blood Pressure Position Sitting 10/28/24 06:21 Pulse Oximetry 99 10/28/24 06:21 Oxygen Delivery Method Room Air 10/28/24 06:21 Vital Signs Temperature 98.0 F 10/28/24 06:21 Pulse Rate 95 10/28/24 06:21 Respiratory Rate 18 10/28/24 06:21 Blood Pressure 131/87 10/28/24 06:21 Pulse Oximetry 99 10/28/24 06:21 Oxygen Delivery Method Room Air 10/28/24 06:21 Temperature 98.0 F 10/28/24 06:21 Pulse Rate 86 10/28/24 07:55 Respiratory Rate 16 10/28/24 07:55 Blood Pressure 125/77 10/28/24 07:55 Pulse Oximetry 98 10/28/24 07:55 Oxygen Delivery Method Room Air 10/28/24 07:55 Medications Administered Medications: Discontinued Medications Generic Name Dose Route Start Last Admin Trade Name Freq PRN Reason Stop Dose Admin Hydromorphone HCl 0.5 mg 10/28/24 06:39 10/28/24 07:15 Hydromorphone 0.5 Mg/0.5 Ml Inj IVP 10/28/24 06:40 0.5 mg ONCE ONE Administration Medical Decision Making Lab Data Lab results reviewed: Yes I reviewed the patient's lab results Lab results narrative: Trace blood, remainder of labs fairly reassuring and stable for patient with his previously known hematological abnormalities. Labs: Lab Results 10/28/24 10/28/24 10/28/24 Range/Units 06:45 07:07 07:41 WBC 11.96 H (4.50-11.00) K/uL RBC 5.48 (4.30-5.90) m/uL Hgb 15.3 (13.5-17.5) gm/dL Hct 46.2 (37.0-53.0) % MCV 84 (80-100) fL MCH 28 (26-34) pg MCHC 33 (32-36) gm/dL RDW Coeff of Efraín 14.4 (11.5-15.5) % Plt Count 490 H (140-440) K/uL Neut % (Auto) 57.4 (42.0-72.0) % Lymph % (Auto) 18.0 L (20-44) % [place] % (Auto) 15.5 H (0.0-11.0) % Eos % (Auto) 8.5 H (0.0-7.0) % Baso % (Auto) 0.4 (0.0-3.0) % Neut # (Auto) 6.90 (1.7-7.0) K/uL Lymph # (Auto) 2.20 (0.90-2.90) K/uL [place] # (Auto) 1.90 H (0.00-0.90) K/UL Eos # (Auto) 1.00 H (0.00-0.50) K/uL Baso # (Auto) 0.00 (0.00-0.30) K/uL Abs Immat Gran (auto) 0.00 (0.00-0.30) K/uL Imm/Tot Granulo (auto) 0.2 % Sodium 136 (135-149) mmol/L Potassium 4.5 (3.6-5.1) mmol/L Chloride 102 (96-114) mmol/L Carbon Dioxide 27 (20-32) mmol/L Anion Gap 7 (7-15) mEq/L BUN 12 (5-24) mg/dL Creatinine 1.1 (0.5-1.5) mg/dL Estimated Creat Clear 93.09 Estimated GFR 88 ml/min Glucose 112 (60-115) mg/dL Lactate 1.0 (0.5-1.9) mmol/L Calcium 9.4 (8.4-10.6) mg/dL Total Bilirubin 0.5 (0.1-1.5) mg/dL AST 29 (12-35) U/L ALT 33 (4-50) U/L Alkaline Phosphatase 71 (40-150) U/L C-Reactive Protein 1.9 H (0.5-1.0) mg/dL Total Protein 6.5 (6.0-8.3) g/dL Albumin 4.1 (3.3-5.0) g/dL Lipase 61 (23-300) U/L Urine Color Yellow (Yellow) Urine Appearance Clear (Clear) Urine pH 5.5 (5.0-8.5) Ur Specific [place] 1.025 (1.000-1.030) Urine Protein Negative (Negative) Urine Glucose (UA) Negative (Negative) Urine Ketones Negative (Negative) Urine Blood Trace-lysed A (Negative) Urine Nitrite Negative (Negative) Urine Bilirubin Negative (Negative) Urine Urobilinogen 0.2 (0.2-1.0) Ur Leukocyte Esterase Negative (Negative) Urine RBC 0-2 (0-2) Urine WBC 0-2 (0-5) Ur Squamous Epith Cells None (None-Few) Urine Bacteria None (None) Imaging Data CT scan - abdomen: Attestation: I have reviewed the pertinent imaging results. My impression: Lymphadenopathy. Radiology report reviewed to summarize this. No obvious signs of intraperitoneal hemorrhage, obstruction or ureterolithiasis. There is a single ureteral stone, proximal 3rd of ureter but no associated hydronephrosis or stranding that would suggest inflammation. Radiologist's impression: IMPRESSION: 1. Increased size of bilateral inguinal lymph nodes with stable size and configuration of retroperitoneal and bilateral iliac group of lymph node. Mild reduction in the size of a periportal lymph node. 2. Nonobstructing left upper ureteric calculus of 4 millimeter. No hydronephrosis. Please note that all CT scans at this facility use dose modulation, iterative reconstruction, and/or weight-based dosing when appropriate to reduce radiation dose to as low as reasonably achievable. Dictated by Marnie Garcia MD @ 10/28/2024 8:35:19 AM Discharge Plan Discharge Clinical Impression: Ureterolithiasis Patient Disposition: Home w/ Parent or Adult Condition: Improved Instructions: Ureteral Stones (ED) Additional Instructions: As we discussed, you have a 4 mm stone in your left ureter. This is the tube that connects your kidney in your bladder. This certainly does explain your symptoms well. At this size, it should pass without complication. Remember to watch for symptoms of infection, severe weakness as indications to come back to the emergency room. This can take several weeks to pass. To help pass, I am starting you on a medication called Flomax. He will take 1 pill once daily in the mornings. This helps cut down on spasm and dilate open the urinary tract just a little bit to help the stone pass more easily. If your confident that you pass the stone, you may stop this medication right away. Remember to drink lots of fluids to help the stone pass and move frequently while awake. For pain, he may take Tylenol 1000 mg every 6 hours. I have also given her prescription for Toradol which is an anti-inflammatory pain medication. Take 1 pill every 6 hours as needed for pain. It is okay to use sleep aids like Benadryl or melatonin at night to help you sleep as well. Unrelated, you do have some enlarged lymph nodes in your abdomen. It looks like some of these were seen on previous scan several years ago. Some of them were smaller, a couple of them are slightly bigger. I need you to follow-up with your tower observer regarding this. It can be a simple as a phone call, but they may want to see when the clinic. I will provide you with a report also with the highlighted important portion to discuss with them. I suspect they probably already know about this. Activity Level: Activity as Tolerated Discharge Diet: Regular Prescriptions: New ketorolac 10 mg tablet 10 mg PO Q6H PRN (Reason: pain) 5 Days Qty: 20 0RF tamsulosin [Flomax] 0.4 mg capsule 0.4 mg PO DAILY Qty: 10 0RF Rx Instructions: May stop once kidney stone is passed No Action ibuprofen 200 mg tablet 800 mg PO TID PRN sildenafil [Viagra] 50 mg tablet 25 - 100 mg PO DAILY PRN (Reason: sexual activity) Qty: 6 12RF Rx Instructions: administer 30 minutes to 4 hours before activity verapamil 240 mg capsule,ext rel. pellets 24 hr 240 mg PO QDAY Qty: 30 5RF omeprazole 40 mg capsule,delayed release(DR/EC) 40 mg PO DAILY Qty: 90 1RF acetaminophen [Tylenol Extra Strength] 500 mg tablet 500 - 1,000 mg PO Q6H PRN Rx Instructions: Max 4000mg in 24 hours fexofenadine-pseudoephedrine [Mignon-D 24 Hour] 180-240 mg tablet extended release 24 hr 1 tab PO Q24H PRN bupropion HCl 150 mg tablet extended release 24 hr 150 mg PO QAM Qty: 90 0RF Follow Up/Referrals: Cabrera Melo MD [Primary Care Provider, Family Practice] Stand Alone Forms: [employer] Info Instructions
[2024-10-28 06:51] LABS: Basophils Percent Auto 0.4 % (0.0-3.0); Eosinophils Percent Auto 8.5 % (0.0-7.0); Hematocrit 46.2 % (37.0-53.0); Hemoglobin* 15.3 gm/dL (13.5-17.5); Immature Granulocytes Pct Auto 0.2 %; Mean Corpuscular HGB Conc 33 gm/dL (32-36); Mean Corpuscular Hemoglobin 28 pg (26-34); Mean Corpuscular Volume 84 fL (80-100); Monocytes Percent Auto 15.5 % (0.0-11.0); Neutrophils Percent Auto 57.4 % (42.0-72.0); Platelet Count* 490 K/uL (140-440); RDW Coefficient of Variation % 14.4 % (11.5-15.5); Red Blood Count 5.48 m/uL (4.30-5.90); White Blood Count* 11.96 K/uL (4.50-11.00)
[2024-10-28 06:52] LABS: Slide Review Reflex No
[2024-10-28] MEDS: HYDROmorphone 0.5 mg/0.5 ml inj IVP (07:15)
[2024-10-28 07:16] VITALS: O2SAT 99
[2024-10-28 07:30] LABS: Albumin* 4.1 g/dL (3.3-5.0); Chloride* 102 mmol/L (96-114); Potassium* 4.5 mmol/L (3.6-5.1); Sodium* 136 mmol/L (135-149)
[2024-10-28 07:32] LABS: Blood Urea Nitrogen* 12 mg/dL (5-24); Creatinine* 1.1 mg/dL (0.5-1.5); Est. Creatinine Clearance* 93.09; Estimated Glomerular Filt Rate 88 ml/min
[2024-10-28 07:33] LABS: Alanine Aminotransferase* 33 U/L (4-50); Alkaline Phosphatase* 71 U/L (40-150); Anion Gap 7 mEq/L (7-15); Aspartate Amino Transferase* 29 U/L (12-35); Bilirubin Total* 0.5 mg/dL (0.1-1.5); Carbon Dioxide* 27 mmol/L (20-32); Lipase* 61 U/L (23-300); Total Protein* 6.5 g/dL (6.0-8.3)
[2024-10-28 07:34] LABS: Calcium* 9.4 mg/dL (8.4-10.6); Glucose* 112 mg/dL (60-115)
[2024-10-28 07:36] LABS: C Reactive Protein* 1.9 mg/dL (0.5-1.0)
[2024-10-28 07:51] LABS: Appearance Urine Clear (Clear); Bilirubin Urine Negative (Negative); Blood Urine Trace-lysed (Negative); Color Urine Yellow (Yellow); Glucose Urine Negative (Negative); Ketones Urine Negative (Negative); Leukocyte Esterase Urine Negative (Negative); Nitrite Urine Negative (Negative); Protein Urine Negative (Negative); Specific Gravity Urine 1.025 (1.000-1.030); Urobilinogen Urine 0.2 (0.2-1.0); pH Urine 5.5 (5.0-8.5)
[2024-10-28 07:55] VITALS: BP 125/77; PULSE 86; RESP 16; O2SAT 98
[2024-10-28 08:01] LABS: RBC Urine 0-2 (0-2); WBC Urine 0-2 (0-5)
[2024-10-28 09:13] VITALS: BP 123/78; PULSE 86; RESP 16; TEMP 36.6; O2SAT 97
[2024-10-28] MEDS: TAMSULOSIN HCL 0.4 MG CAPSULE PO (09:14)
[2024-10-28] MEDS: KETOROLAC 10 MG TABLET PO (09:14)
== END 2024-10-28 09:25 | disposition home or self-care (01) ==
PROVIDERS: Emergency Provider Family Medicine; PCP Family Medicine
DX: N20.1 Calculus of ureter (principal)
CPT/HCPCS: 36415; 74177; 80053; 81001; 81003; 83605; 83690; 85025; 86140; 94761; 96374; 99284; A9270; J1171; Q9967

== ENCOUNTER 2024-11-17 11:40 | Outpatient (CLI) | payer OTHER, SELFPAY ==
--- NOTE | 2024-11-17 11:30 | CRLHL7_ITS ---
For Patients: As a result of the Century Cures Act, medical imaging exams and procedure reports are released immediately into your electronic medical record. You may view this report before your referring provider. If you have questions, please contact your health care provider. Indication: CALCULUS OF LEFT KIDNEY SEEN ON 10/28/24 CT, LEFT SIDE PAIN, EVALUATING FOR DIVERTICULITIS Technique: Noncontrast CT of the abdomen and pelvis was obtained. Please note that all CT scans at this facility use dose modulation, iterative reconstruction, and/or weight-based dosing when appropriate to reduce radiation dose to as low as reasonably achievable. Comparison: 10/28/2024. Findings: Slightly suboptimal examination secondary to habitus. Lower thorax: Normal. Liver and biliary tree: Mild hepatic steatosis. Gallbladder: Normal. Spleen: Absent. Pancreas: Normal noncontrast appearance. Adrenal glands: Normal noncontrast appearance. Kidneys and ureters: No hydronephrosis or obstructing renal calculi. Mildly atrophic left kidney. Right renal cyst. Redemonstration of 3 millimeter calculus in the upper left ureter (/79). Gastrointestinal tract: No evidence of acute appendicitis. No evidence of bowel obstruction. Peritoneal cavity: Normal. Bladder: Normal. Pelvic organs: Normal. Vasculature: Normal noncontrast appearance. Lymph nodes: Bilateral inguinal lymphadenopathy measuring up to 1.8 centimeter on the right (2/167). Bilateral pelvic and retroperitoneal lymphadenopathy measuring up to 2.1 centimeter in the left iliac station (2/134). Abdominal wall: Atrophic left rectus muscle. Musculoskeletal: Normal. Impression: 1. Redemonstration of nonobstructing left upper ureter 3 millimeter calculus. No hydronephrosis. 2. No evidence of acute diverticulitis. 3. Redemonstration of lymphadenopathy. Malignancy can not be excluded. Please note that all CT scans at this facility use dose modulation, iterative reconstruction, and/or weight-based dosing when appropriate to reduce radiation dose to as low as reasonably achievable. Dictated by Reddy Spivey MD @ 11/17/2024 1:12:43 PM (Electronically Signed)
== END 2024-11-17 11:41 | disposition home or self-care (01) ==
PROVIDERS: PCP Family Medicine; Visit Provider Family Medicine
DX: N20.0 Calculus of kidney (principal); N20.1 Calculus of ureter; R59.1 Generalized enlarged lymph nodes; R10.32 Left lower quadrant pain
CPT/HCPCS: 74176; 80053

== ENCOUNTER 2025-01-19 09:15 | Outpatient (CLI) | payer OTHER, SELFPAY | END 2025-01-19 09:16 | disposition home or self-care (01) | LOC: NFLDREF 01-20 12:06 | PROVIDERS: PCP Family Medicine; Referring Provider Family Medicine; Visit Provider Family Medicine | DX: E78.5 Hyperlipidemia, unspecified (principal) | CPT/HCPCS: 80053; 80061 ==

== ENCOUNTER 2025-03-02 11:17 | Outpatient (CLI) | payer OTHER, SELFPAY | END 2025-03-02 11:18 | disposition home or self-care (01) | LOC: NFLDREF 03-04 13:54 | PROVIDERS: PCP Family Medicine; Referring Provider Family Medicine; Visit Provider Family Medicine | DX: R35.0 Frequency of micturition (principal) | CPT/HCPCS: 80053; 80061; 87086 ==